=== PATIENT | male | born 1975 | race Caucasian/White ===

== ENCOUNTER 2016-10-31 16:21 | Emergency (ER) | payer BC ==
[~2016-10-31] VITALS: Ht 180.3 cm; Wt 122.0 kg
[2016-10-31 16:28] VITALS: BP 148/81; PULSE 86; RESP 18; TEMP 98.4; O2SAT 97
--- NOTE | 2016-10-31 16:49 | PD ---
HPI Chief Complaint: Injury Time Seen by Provider: 16:33 Travel History International Travel<30 days: No Contact w/Intl Traveler<30days: No History of Present Illness HPI 41-year-old male presents to the emergency department for evaluation of right knee pain. Patient reports history of chronic knee pain, this pain worsened last night. He denies any recent injury or trauma. Patient has been taking aspirin [id number] without improvement. Patient states that he had some chills last night, also has a sore throat and cough. Patient denies any known fevers. No chest pain or shortness of breath. No abdominal pain. No nausea, vomiting, diarrhea. Patient has not followed up with a primary or orthopedist for his knee pain. Patient denies any other complaints at this time. [facility] Social History Alcohol Use: No Tobacco Use: No Substance Use: No Allergies-Medications (Allergen,Severity, Reaction): Coded Allergies: No Known Allergies (Unverified , 10/31/16) Reported Meds & Prescriptions Reported Meds & Active Scripts Active No Active Prescriptions or Reported Medications Review of Systems Except as stated in HPI: all other systems reviewed are Neg Physical Exam Narrative GENERAL: Well-nourished, well-developed male patient, afebrile. SKIN: Focused skin assessment warm/dry. No erythema or warmth over right knee. HEAD: Normocephalic. Atraumatic. ENT: Mucosa pink and moist. No erythema or exudates. No uvular edema. No uvular , palatal, or tonsillar deviation. Airway patent. Nasal turbinates appear normal without nasal blood, purulent drainage or septal hematoma. Bilateral tympanic membranes are clear without erythema or perforation. EYES: No scleral icterus. No injection or drainage. NECK: Supple, trachea midline. No JVD or lymphadenopathy. CARDIOVASCULAR: Regular rate and rhythm without murmurs, gallops, or rubs. Right pedal pulse is 2+. RESPIRATORY: Breath sounds equal bilaterally. No accessory muscle use. Lungs sounds are clear to auscultation. GASTROINTESTINAL: Abdomen soft, non-tender, nondistended. MUSCULOSKELETAL: No cyanosis, or edema. No reproducible tenderness over right knee. He has full flexion-extension of the right knee. He has full sensation distal right lower extremity. BACK: Nontender without obvious deformity. No CVA tenderness. Data Data Last Documented VS Vital Signs Date Time Temp Pulse Resp B/P (MAP) Pulse Ox O2 Delivery O2 Flow Rate FiO2 10/31/16 17:00 16 97 Room Air 10/31/16 16:28 98.4 86 148/81 (103) Orders Orders Knee, Complete (4vws) (10/31/16 ) [facility] Medical Decision Making Medical Screen Exam Complete: Yes Emergency Medical Condition: Yes Medical Record Reviewed: Yes Interpretation(s) Last Impressions Knee X-Ray 10/31/16 0000 Signed Impressions: Service Date/Time: Monday, October 31, 2016 17:03 - CONCLUSION: Negative for an acute process. There is mild suprapatellar induration without joint effusion. Papa Davison MD FACR Differential Diagnosis Sprain versus acute exacerbation of chronic knee pain versus muscles spasms versus strain Narrative Course 41-year-old male presents to the emergency department for evaluation right knee pain. Patient has history of chronic knee pain, but states it was worse last night. No new injury. There is no evidence of septic joint on exam. Patient also reports some upper respiratory symptoms that started last night. Physical exam is reassuring. X-ray of the right knee is ordered and pending. X-ray of the right knee shows no acute process. Patient is given a copy of his x-ray report. He is instructed to follow-up with orthopedist for this chronic knee pain. He'll be discharged with a prescription for diclofenac. He sees heating pad on low. He verbalizes agreement and understanding. The patient was discharged in stable condition with instructions, including return instructions and follow up instructions. Diagnosis Primary Impression: Right knee pain Qualified Codes: M25.561 - Pain in right knee; G89.29 - Other chronic pain Referrals: Orthopedist call for appointment Primary Care Physician call for appointment Patient Instructions: General Instructions, Knee Pain (ED) Additional Instructions: Rotate ice/heat. Take diclofenac as directed as needed with food for pain. Follow up with an orthopedist. Return to the emergency department for any acute, worsening of symptoms. Med/Other Pt SpecificInfo: Prescription(s) given Scripts Diclofenac Potassium (Diclofenac Potassium) 50 Mg Tab 50 MG PO TID Y for PAIN SCALE 1 TO 10, #21 TAB 0 Refills Prov: Sara Gallardo 10/31/16 Disposition: 01 DISCHARGE HOME Condition: Stable Sara Gallardo Oct 31, 2016 16:49
--- NOTE | 2016-10-31 17:35 | RADRPT ---
EXAM DATE/TIME: 10/31/2016 17:03 [place] COMPARISON: No previous studies available for comparison. INDICATIONS : Right knee pain for 24 hours with no known injury MEDICAL HISTORY : None. SURGICAL HISTORY : None. ENCOUNTER: Initial ACUITY: 1 day PAIN SCORE: 8/10 LOCATION: Right medial knee FINDINGS: Four view examination of the right knee demonstrates no evidence of fracture or dislocation. Bony mi neralization is normal. The articular surfaces are intact. Mild induration subpatellar space withou t definite effusion. CONCLUSION: Negative for an acute process. There is mild suprapatellar induration without joint effusion. Papa Davison MD FACR on October 31, 2016 at 17:32 Board Certified Radiologist. This report was verified electronically.
[2016-10-31] MEDS ORDERED: DICL50TA PO (17:48)
== END 2016-10-31 18:14 | disposition home or self-care (01) ==
LOC: PHED 16:21
DX: M25.561 Pain in right knee (principal); G89.29 Other chronic pain
CPT/HCPCS: 73564; 99283